=== PATIENT | female | born 1990 | race American Indian/Alaskan Native ===

== ENCOUNTER 2017-05-27 07:25 | Outpatient (CLI) | payer BC ==
--- NOTE | 2017-05-27 09:09 | Magnetic Resonance Report ---
MRI OF THE BRAIN WITHOUT CONTRAST: HISTORY: Multiple sclerosis, headache PROCEDURE: Multiplanar, multisequence MR imaging of the brain without IV contrast was performed. COMPARISON: No relevant comparisons at this facility. FINDINGS: The brain parenchyma signal intensity and its quiroz white interface are within normal limits on all sequences. No evidence for acute ischemia, hemorrhage or mass. No chronic infarct or extra-axial fluid collection. The midline structures are central. The basal cisterns are patent. Normal ventricular size. The orbital cavities and sella turcica demonstrate no abnormality. The optic nerves are symmetric and normal signal. The visualized paranasal sinuses and mastoid air cells are well aerated. IMPRESSION: Normal noncontrast MRI of the brain. No findings to suggest multiple sclerosis.
--- NOTE | 2017-05-27 09:12 | Magnetic Resonance Report ---
MR CERVICAL SPINE WITHOUT CONTRAST HISTORY: Headache, pain, multiple sclerosis. TECHNIQUE: Axial T1 and T2. Sagittal T1, T2 and STIR. COMPARISON: No relevant comparisons at this facility. FINDINGS: The cervical spinal cord is normal size and signal intensity throughout. There is no evidence for abnormal intramedullary signal to suggest multiple sclerosis. No central canal stenosis. There is normal height and alignment of the cervical vertebral bodies. Normal bone marrow signal. The posterior elements are intact and unremarkable. No significant facet arthropathy. Minimal disc desiccation is noted at C3-4 and C4-5. No bulging disc, annular tear or herniation. The neural foramen are widely patent throughout the cervical region. Normal paraspinal soft tissues. IMPRESSION: Early disc desiccation at C3-4 and C4-5. Otherwise, normal MRI of the cervical spine. No findings to suggest multiple sclerosis.
== END 2017-05-27 07:26 | disposition home or self-care (01) ==
LOC: MRI 07:25
PROVIDERS: ATTEND Psychiatry & Neurology Neurology
DX: G43.709 Chronic migraine without aura, not intractable, without status migrainosus (principal); G35 Multiple sclerosis; M53.82 Other specified dorsopathies, cervical region
CPT/HCPCS: 70551; 72141

== ENCOUNTER 2017-11-02 09:58 | Emergency (ER) | payer BC ==
[2017-11-02 11:05] LABS: Basophils # (Auto) 0.1 K/mm3 (0.0-0.1); Basophils % (Auto) 0.9 % (0.0-1.8); Eosinophils # (Auto) 0.1 K/mm3 (0.0-0.4); Eosinophils % (Auto) 1.4 % (0.0-4.3); Hematocrit 39.8 % (30.3-42.9); Hemoglobin 13.3 gm/dl (10.1-14.3); Lymphocytes # (Auto) 1.6 K/mm3 (1.2-5.4); Lymphocytes % (Auto) 23.1 % (13.4-35.0); Mean Corpuscular HGB Conc 34 % (30-34); Mean Corpuscular Hemoglobin 29 pg (28-32); Mean Corpuscular Volume 87 fl (79-97); Monocytes # (Auto) 0.7 K/mm3 (0.0-0.8); Monocytes % (Auto) 9.7 % (0.0-7.3); Platelet Count 277 K/mm3 (140-440); Red Blood Count 4.57 M/mm3 (3.65-5.03); Red Cell Distribution Width 12.4 % (13.2-15.2)
[2017-11-02 11:12] LABS: BUN/Creatinine Ratio 20; Blood Urea Nitrogen 10 mg/dL (7-17); Hemolysis Index 16
--- NOTE | 2017-11-02 11:37 | XRay Report ---
ROUTINE CHEST, TWO VIEWS: HISTORY: Shortness of breath. The trachea, heart, mediastinal contour, lung strickland are unremarkable. Mild scoliosis is noted. IMPRESSION: Unremarkable chest x-ray.
[2017-11-02] MEDS ORDERED: MOTRIN PO ONE (13:41)
[2017-11-02] MEDS ORDERED: TYLENOL PO ONE (13:41)
--- NOTE | 2017-11-02 13:45 | Emergency Department Report ---
ED General Adult HPI - General Chief complaint: Dyspnea/Respdistress Stated complaint: BURNING IN CHEST WHEN BREATHING Time Seen by Provider: 11/02/17 13:27 Source: patient, RN notes reviewed Mode of arrival: Ambulatory Limitations: No Limitations - History of Present Illness Initial comments: This is a 27-year-old female. The patient is previously unknown to this provider. The patient presents to the ER primary complaint of left chest wall pain. The pain has been present for 4 days. It is intermittent and radiates to the back. When she takes a deep breath, she describes an increase in "burning." There is no posterior leg pain, leg swelling, recent surgeries, patient reports no oral contraceptives or injectable contraceptives within the past 2 months. There is no recent aspirin use or cocaine use. The patient describes unlimited exercise tolerance. The patient also indicates that she's had an outpatient stress test with [facility] within the past few months, which she reports was negative. The patient also complains of right frontal sinus headache. This headache has been present since March. It is not sudden or thunderclap in nature. It did not reach maximal intensity within an hour. It has no exacerbating or relieving factors. The patient also describes nonspecific binocular blurry vision since March. She reports that she is being seen by an outpatient cattle manager for this. His pain was, and does not have exacerbating or relieving factors. -: Gradual Location: head, chest Radiation: back Quality: aching Consistency: intermittent Improves with: rest Worsens with: movement Associated Symptoms: chest pain, headaches, other (per hpi). denies: confusion , cough, diaphoresis, fever/chills, loss of appetite, malaise, nausea/vomiting, rash, seizure, shortness of breath, weakness - Related Data Previous Rx's Medication Instructions Recorded Last Taken Type Acetaminophen/Codeine [Tylenol #3] 1 tab PO Q6H PRN #14 tab 04/01/14 Unknown Rx Phenazopyridine [Pyridium] 200 mg PO TID #6 tablet 04/01/14 Unknown Rx Sulfamethoxazole/Trimethoprim 1 each PO BID #6 tablet 04/01/14 Unknown Rx [Bactrim Ds] Allergies Allergy/AdvReac Type Severity Reaction Status Date / Time latex Allergy Rash Verified 04/01/14 10:05 ED Review of Systems ROS: Stated complaint: BURNING IN CHEST WHEN BREATHING Other details as noted in HPI Comment: see hpi ED Past Medical Hx - Past Medical History Previous Medical History?: Yes Hx Asthma: Yes Additional medical history: PRACHI Lupus, Type 2 [employer], SVT - Surgical History Past Surgical History?: Yes Additional Surgical History: x2, LEAP procedure for cervix x2 - Social History Smoking Status: Never Smoker - Medications Home Medications: Home Medications Medication Instructions Recorded Confirmed Last Taken Type Acetaminophen/Codeine [Tylenol #3] 1 tab PO Q6H PRN #14 tab 04/01/14 Unknown Rx Phenazopyridine [Pyridium] 200 mg PO TID #6 tablet 04/01/14 Unknown Rx Sulfamethoxazole/Trimethoprim 1 each PO BID #6 tablet 04/01/14 Unknown Rx [Bactrim Ds] ED Physical Exam - General Limitations: No Limitations General appearance: alert, in no apparent distress - Head Head exam: Present: atraumatic, normocephalic - Eye Eye exam: Present: normal appearance, PERRL, EOMI, other (visual acuity intact to finger counting, color perception, reading at a close distance). Absent: nystagmus - ENT ENT exam: Present: normal exam, normal orophraynx, mucous membranes moist, TM's normal bilaterally, normal external ear exam, other (there is no mastoid tenderness) - Neck Neck exam: Present: normal inspection, full ROM - Respiratory Respiratory exam: Present: normal lung sounds bilaterally, chest wall tenderness , other (the bilateral breast exam is within normal limits and nontender. During the breast examination, escorted by nursing Marlen Solorzano). Absent : respiratory distress - Cardiovascular Cardiovascular Exam: Present: regular rate, normal rhythm, normal heart sounds. Absent: systolic murmur, diastolic murmur, rubs, gallop - GI/Abdominal GI/Abdominal exam: Present: soft, normal bowel sounds. Absent: distended, tenderness, guarding, rebound, rigid, pulsatile mass - Extremities Exam Extremities exam: Present: normal inspection, full ROM, normal capillary refill. Absent: pedal edema, joint swelling, calf tenderness - Back Exam Back exam: Present: normal inspection, full ROM. Absent: tenderness, CVA tenderness (R), paraspinal tenderness, vertebral tenderness - Neurological Exam Neurological exam: Present: alert, oriented X3, CN II-XII intact, normal gait ( no past pointing, no pronator drift, normal [id number], negative Romberg examination, normal tandem gait), other (Extraocular movements intact. Tongue midline. No facial droop. Facial sensation intact to light touch in the V1, V2 , V3 distribution bilaterally. 5 and 5 strength in 4 extremities.. Sensation is intact to light touch in 4 extremities.). Absent: motor sensory deficit - Psychiatric Psychiatric exam: Present: normal affect, normal mood - Skin Skin exam: Present: warm, dry, intact, normal color. Absent: rash ED Course Vital Signs 11/02/17 10:31 Temperature 98.2 F Pulse Rate 80 Respiratory 16 Rate Blood Pressure 113/71 O2 Sat by Pulse 100 Oximetry ED Medical Decision Making - Lab Data Result diagrams: 11/02/17 10:41 11/02/17 10:41 Vital Signs 11/02/17 10:31 Temperature 98.2 F Pulse Rate 80 Respiratory 16 Rate Blood Pressure 113/71 O2 Sat by Pulse 100 Oximetry Lab Results 11/02/17 11/02/17 11/02/17 Range/Units 10:41 10:41 10:41 WBC 7.1 (4.5-11.0) K/mm3 RBC 4.57 (3.65-5.03) M/mm3 Hgb 13.3 (10.1-14.3) gm/dl Hct 39.8 (30.3-42.9) % MCV 87 (79-97) fl MCH 29 (28-32) pg MCHC 34 (30-34) % RDW 12.4 L (13.2-15.2) % Plt Count 277 (140-440) K/mm3 Lymph % (Auto) 23.1 (13.4-35.0) % [place] % (Auto) 9.7 H (0.0-7.3) % Eos % (Auto) 1.4 (0.0-4.3) % Baso % (Auto) 0.9 (0.0-1.8) % Lymph # 1.6 (1.2-5.4) K/mm3 [place] # 0.7 (0.0-0.8) K/mm3 Eos # 0.1 (0.0-0.4) K/mm3 Baso # 0.1 (0.0-0.1) K/mm3 Seg Neutrophils % 64.9 (40.0-70.0) % Seg Neutrophils # 4.6 (1.8-7.7) K/mm3 Sodium 139 (137-145) mmol/L Potassium 4.3 (3.6-5.0) mmol/L Chloride 100.7 (98-107) mmol/L Carbon Dioxide 24 (22-30) mmol/L Anion Gap 19 mmol/L BUN 10 (7-17) mg/dL Creatinine 0.5 L (0.7-1.2) mg/dL Estimated GFR > 60 ml/min BUN/Creatinine Ratio 20 % Glucose 92 (65-100) mg/dL Calcium 9.0 (8.4-10.2) mg/dL Troponin T < 0.010 (0.00-0.029) ng/mL HCG, Qual Negative (Negative) - EKG Data -: EKG Interpreted by [facility] EKG shows normal: sinus rhythm Rate: normal - EKG Data When compared to previous EKG there are: previous EKG unavailable 11/02/17 13:49 Normal sinus, 83 bpm, normal axis, normal intervals, incomplete right bundle branch block, not morphologically consistent with STEMI - Radiology Data Radiology results: report reviewed, image reviewed X-ray of the chest is negative for acute disease - Medical Decision Making Differential diagnosis, including but not limited to: Pericarditis, myocarditis , costochondritis, acute coronary syndrome, migraine headache, tension headache , cluster headache, anterior chamber disorder, posterior chamber disorder, sinusitis Assessment and plan: 27-year-old female with multiple complaints. In terms of the patient's chest pain, it is reproducible, she's had it for days , troponin negative 1, EKG unremarkable, no pulmonary embolus or DVT risk factors, low risk by well's criteria, perc negative, low risk by WILFREDO score, low risk by heart score, she reports a negative outpatient stress test. The chest pain is reproducible, as per the [employer] clinical policy, myocardial infarction may be excluded with 1 set of troponins. Patient endorses a number of nonspecific complaints including headache, visual disturbance and sinus pressure. She indicates these have been going on since March. Objectively speaking she has a normal neurologic examination, normal cranial nerve examination, visual acuity intact to direct confrontation, finger counting, color perception, reading at a close distance. She is noted to be playing on a cellular phone and eating fast food without difficulty. She further endorses that she is followed up with an outpatient ophthalmologists/ eye doctor and neurologist for these problems. Given the chronicity of symptoms, normal examination, I don't believe the patient requires emergent imaging at this time. The patient can follow up with her outpatient specialist for the aforementioned chronic complaints, and she can follow up with her outpatient ladies attendant for her atypical reproducible chest wall pain. Critical care attestation.: If time is entered above; I have spent that time in minutes in the direct care of this critically ill patient, excluding procedure time. ED Disposition Clinical Impression: Chest wall pain, Headache, History of visual disturbance Disposition: TO HOME OR SELFCARE Is pt being admited?: No Does the pt Need Aspirin: No Condition: Stable Instructions: Chest Pain (ED), Costochondritis (ED) Additional Instructions: Continue current outpatient medications as directed. Take Tylenol or Motrin [id number] as needed for pain. Follow up with her ladies attendant within the next 3-5 days. Follow-up with your neurologist or cash applications specialist within the next 7-10 days. Return to the ER right away with new pain, worsened pain, migration of pain, fevers, chills, lethargy, irritability, projectile vomiting, change in mental status, confusion, inability to tolerate liquid feeds. Referrals: LADY COON MD [Primary Care Provider] - 3-5 Days [facility] [Provider Group] - 3-5 Days NATHALIA MAXWELL MD [Staff Physician] - 3-5 Days PAULO DOMINGO MD [Staff Physician] - 3-5 Days
[2017-11-02 14:20] VITALS: BP 121/64
== END 2017-11-02 14:39 | disposition home or self-care (01) ==
LOC: ED 09:58
DX: R07.89 Other chest pain (principal); Z91.040 Latex allergy status
CPT/HCPCS: 36415; 71046; 80048; 84484; 84703; 85025; 93005; 93010; 99284